=== PATIENT | female | born 1950 | race Caucasian/White ===

== ENCOUNTER 2016-07-06 06:02 | Inpatient (IN) | payer OTHER ==
[2016-06-02 13:47] VITALS: BMI 29.0
--- NOTE | 2016-06-02 14:21 | PAT Medication Instructions ---
Service Date Jun 02, 2016. Current Home Medication List Albuterol Sulfate (Proair Respiclick), 2 PUFF INH Q4 PRN for SOB/Wheezing Calcium/Vitamin D (Os-Berry 500 Plus D), 1 TAB PO 3XWK Estradiol Vaginal (Vagifem), 1 TAB PV 2XWK Krill Oil (Megared [place]-3 Krill Oil 500 mg), 1 CAP PO 3XWK Levothyroxine Sodium (Levothyroxine Sodium), 1 TAB PO QAM Multivitamin (Multivitamin), 1 TAB PO 3XWK Naproxen (Aleve), 220 MG PO Q12 PRN for Pain Umeclidinium-Vilanterol (Anoro Ellipta 62.5-25 Mcg/INH), 2 PUFF INH QAM Medication Instructions For Your Scheduled Surgery - Hold the following medications 2 weeks prior to surgery: Krill Oil (Megared [place]-3 Krill Oil 500 mg), 1 CAP PO 3XWK - Hold the following medications 7-10 days prior to surgery per surgeon instructions: Naproxen (Aleve), 220 MG PO Q12 PRN for Pain - Hold the following medications the morning of surgery: Multivitamin (Multivitamin), 1 TAB PO 3XWK Calcium/Vitamin D (Os-Berry 500 Plus D), 1 TAB PO 3XWK Estradiol Vaginal (Vagifem), 1 TAB PV 2XWK - Take the following medications the morning of surgery with a sip of water: Umeclidinium-Vilanterol (Anoro Ellipta 62.5-25 Mcg/INH), 2 PUFF INH QAM Levothyroxine Sodium (Levothyroxine Sodium), 1 TAB PO QAM Albuterol Sulfate (Proair Respiclick), 2 PUFF INH Q4 PRN for SOB/Wheezing ( bring with you to hospital on day of surgery) Tramadol (can take up to four hours prior to surgery if needed) - Take the following medications as scheduled the night before surgery: Albuterol Sulfate (Proair Respiclick), 2 PUFF INH Q4 PRN for SOB/Wheezing Tramadol If you have any questions please call us at [phone] or [phone] ( Lucía) or [phone]
[2016-06-02 14:58] LABS: BASO % 0.2 %; BASO ABS # 0.02 K/uL (0-0.2); COMPLETE YES; EOS % 0.5 %; HEMATOCRIT 42.2 % (37-47); IG% 0.1 %; LYMPH % 23.3 %; MEAN CELL VOLUME 89.2 fL (80-100); MEAN CORPUSCULAR HGB CONC 33.6 g/dl (32-36); MEAN PLATELET VOLUME 11.5 fL (7.4-10.4); MONO % 5.8 %; NEUT % 70.1 %; PLATELET COUNT 230 K/uL (130-400); RED BLOOD COUNT 4.73 M/uL (4.2-5.4); WHITE BLOOD COUNT 8.17 K/uL (4.8-10.8)
--- NOTE | 2016-06-02 15:05 | DIAGNOSTIC IMAGING REPORT ---
CHEST 2 VIEWS ROUTINE CLINICAL HISTORY: Preoperative chest COMPARISON STUDY: No previous studies for comparison. FINDINGS: The cardiac and mediastinal contours are normal. There is no evidence of focal pulmonary consolidation. There is no evidence of failure. No pleural effusions are visualized.[ IMPRESSION: No active disease in the chest. Electronically signed by: Jayy Ashraf M.D. 06/02/2016 3:03 PM
[2016-06-02 15:07] LABS: PROTHROMBIN TIME (PATIENT) 10.2 SECONDS (9.0-12.0)
[2016-06-02 15:09] LABS: URINE APPEARANCE CLEAR (CLEAR); URINE BILIRUBIN NEG (NEG); URINE COLOR YELLOW; URINE EPITHELIAL CELL AUTO 20-30 /lpf (0-5); URINE NITRITE NEG (NEG); URINE SPECIFIC GRAVITY 1.014 (1.000-1.030); UROBILINOGEN NEG (NEG); ZZUR CULT IF INDIC CLEAN CATCH NO
[2016-06-02 15:10] LABS: MANUAL MICROSCOPIC REQUIRED? NO; REVIEW REQ? NO
[2016-06-02 15:22] LABS: BUN/CREATININE RATIO 11.2 (10-20); CALCIUM 9.6 mg/dl (8.5-10.1); CREATININE 0.97 mg/dl (0.60-1.20); POTASSIUM 4.1 mmol/L (3.5-5.1)
[2016-07-06] VITALS (10 sets, daily range): BP systolic 92–132; BP diastolic 57–75; PULSE 73–86; TEMP 36.3–36.6; O2SAT 94–98; Ht 162.6 cm; Wt 76.9 kg
[~2016-07-06] VITALS: Ht 162.6 cm; Wt 76.9 kg
[~2016-07-06 06:02] MED LIST: ACETAMINOPHEN 500 MG TAB PO SCH; ALBU18002 INH; CALC500C70 PO; CEFAZOLIN 2000 MG/60 ML D5W 60 ML IV SCH; CeleBREX 200 MG CAP PO SCH; DEXAMETHASONE 4 MG TAB PO SCH; ESTR10TA PV; FAMOTIDINE 20 MG TAB PO SCH; GABAPENTIN 300 MG CAP PO SCH; KRIL1CAP18 PO; LACTATED RINGER'S 1000ML 1,000 ML IV SCH; LACTATED RINGER'S 1000ML 500 ML IV ONE; LACTATED RINGER'S 1000ML IV SCH; LEVO75TA5 PO; METOCLOPRAMIDE HCL 10 MG TAB PO SCH; MULT-506 PO; NAPR1TAB9 PO; OXYCODONE HCL 10 MG TABCR (OXYCONTIN) PO SCH; POLYMYXIN B SULFATE 100,000 UNITS in NSS 100ML IR SCH; ROPIVACAINE 5MG/ML 30 ML 150 MG, BUPIVACAINE/EPINEPHR 0.5% MPF 30 ML, KETOROLAC TROMETH... INFIL SCH; UMEC1AER INH; VANCOMYCIN INJ 400 MG in NSS 100ML IR SCH
[2016-07-06] MEDS ORDERED: BUPIVACAINE 0.5 % 5 MG/1 ML PF 10ML VIAL ONE (06:29)
[2016-07-06] MEDS ORDERED: LIDOCAINE HCL 2% 2 ML VIAL (20MG/ML) ONE (06:38)
[2016-07-06] MEDS ORDERED: MIDAZOLAM HCL 1 MG/ML 2ML VIAL ONE ×2 (06:38)
[2016-07-06] MEDS ORDERED: PROPOFOL IV EMULSION 10 MG/ML 20 ML VIAL IV ONE (06:38)
[2016-07-06] MEDS ORDERED: FENTANYL CITRATE INJ 50 MCG/1 ML 2 ML VIAL ONE (06:39)
[2016-07-06] MEDS ORDERED: TRAM-10 PO (06:45)
[2016-07-06] MEDS ORDERED: ORTHO JOINT ANESTHETIC ONE (06:58)
--- NOTE | 2016-07-06 07:11 | History and Physical ---
History & Physical Date Jul 06, 2016. Chief Complaint L HIP PAIN History of Present Illness The patient is a 66 year old female with complaints of GREATER THAN 2 YEARS OF L HIP GROIN PAIN. 6/10 W ACTIVITY LIMITED STANDING AND WALKING TOLERANCE HAS FAILED CONSERVATIVE RX INCLUDING INJECTIONAND PT . PAIN W ALL ADLS LIMITED STANDING AND WALKING DON XRAY CW ADVANCED DJD OF HIP. Additional History Hepatic Disease: No Endocrine Disorder: Yes (THYROID ) Kidney Disease: No Hypertension: No Heart Disease: No Bleeding Tendencies: No Infectious Diseases: No Other: ASTHMA Allergies Coded Allergies: No Known Allergies (Verified , 07/06/16) Home Medications Scheduled Calcium/Vitamin D (Os-Berry 500 Plus D), 1 TAB PO 3XWK Estradiol Vaginal (Vagifem), 1 TAB PV 2XWK Krill Oil (Megared [place]-3 Krill Oil 500 mg), 1 CAP PO 3XWK Levothyroxine Sodium (Levothyroxine Sodium), 1 TAB PO QAM Multivitamin (Multivitamin), 1 TAB PO 3XWK Umeclidinium-Vilanterol (Anoro Ellipta 62.5-25 Mcg/INH), 2 PUFF INH QAM Scheduled PRN Albuterol Sulfate (Proair Respiclick), 2 PUFF INH Q4 PRN for SOB/Wheezing Naproxen (Aleve), 220 MG PO Q12 PRN for Pain Tramadol (Ultram), 50 MG PO Q4H PRN for Pain Physical Examination Skin: warm/dry, no rash Eyes: normal inspection, EOMI, sclerae normal ENT: normal ENT inspection, pharynx normal Head: normocephalic, atraumatic Neck: supple, no adenopathy, trachea midline Respiratory/Chest: lungs clear, normal breath sounds, no respiratory distress Cardiovascular: regular rate, rhythm, no edema, no murmur Abdomen / GI: normal bowel sounds, non tender Back: normal inspection Extremities: normal inspection, normal range of motion, + pertinent finding ( LEG LENGHTS EQUAL GROIN PAIN FLEX 80 INT ROT 0 EXT ROT 10 ALL REPRODUCE PAIN ) Neurologic/Psych: no motor/sensory deficits, alert, normal reflexes, oriented x 3 Diagnosis DJD L HIP ASA Classification: ASA Class II Plan of Treatment L GILBERT
[2016-07-06] MEDS: TRANEXAMIC ACID INJ 1,000 MG in SODIUM CHLORIDE 0.9% 100ML 100 ML IV SCH ×2 (07:26→11:16)
[2016-07-06] MEDS ORDERED: PHENYLEPHRINE 100MCG/ML 5ML SYR ONE (08:02)
[2016-07-06] MEDS ORDERED: EpHEDrine SULFATE INJ 50 MG/ML AMP ONE (08:02)
[2016-07-06] MEDS ORDERED: BACITRACIN 50000 UNIT VIAL IR ONE (08:36)
[2016-07-06] MEDS ORDERED: POVIDONE-IODINE OP SOLN 30 ML BTL TOP ONE (08:36)
--- NOTE | 2016-07-06 09:19 | [facility] Post Operative Brief Note ---
Immediate Operative Summary Operative Date Jul 06, 2016. Pre-Operative Diagnosis Degenerative joint disease left hip. Post-Operative Diagnosis same as preoperative Procedure(s) Performed Left Total Hip Arthroplasty, Direct Anterior Approach Surgeon Dr. Cohen Continuous Improvement Manager Surgeon(s) Dianne Eckert Estimated Blood Loss 50 ml Findings DJD Specimens A. Femoral head Complication(s) None Disposition Recovery Room / PACU
[2016-07-06] MEDS ORDERED: ALBUTEROL HFA INHALER 8.5 GM INH PRN (09:30)
[2016-07-06] MEDS ORDERED: DiphenhydrAMINE HCL 50 MG/ML VIAL IV PRN (09:30)
[2016-07-06] MEDS ORDERED: BISACODYL 10 MG SUPP PR PRN (09:30)
[2016-07-06] MEDS ORDERED: ONDANSETRON INJ 2 MG/ML 2 ML VIAL IV PRN (09:30)
[2016-07-06] MEDS ORDERED: ZOLPIDEM TARTRATE 5 MG TAB PO PRN (09:30)
[2016-07-06] MEDS ORDERED: TRAMADOL HCL 50 MG TAB PO PRN (09:30)
[2016-07-06] MEDS ORDERED: ALUMINUM/MAGNESIUM/SIMETH (MAALOX MAX) 30 ML UDC PO PRN (09:30)
[2016-07-06] MEDS ORDERED: METOCLOPRAMIDE HCL INJ 5 MG/ML 2 ML VIAL IV PRN (09:30)
[2016-07-06] MEDS ORDERED: SOD PHOSPHATE/SOD BIPHOSPHATE ENEMA 132 ML BTL PR PRN (09:30)
[2016-07-06] MEDS ORDERED: MoRPHine SULFATE 2 MG/ML CARP IV PRN (09:30)
[2016-07-06] MEDS ORDERED: MAGNESIUM HYDROXIDE SUSP 30 ML UDC PO PRN (09:30)
--- NOTE | 2016-07-06 10:25 | Anesthesiology Progress Note ---
Anesthesia Post Op Note Date & Time Jul 06, 2016 at 10:25 Vital Signs Pain Intensity: 0 Vital Signs Past 12 Hours Date Time Temp Pulse Resp B/P Pulse Ox O2 Delivery O2 Flow Rate FiO2 07/06/16 10:15 82 13 113/69 94 Nasal Cannula 2 07/06/16 10:05 87 20 123/61 97 Nasal Cannula 2 07/06/16 09:55 69 12 112/58 97 Nasal Cannula 2 07/06/16 09:46 36.6 58 12 183/87 96 Nasal Cannula 2 07/06/16 06:47 36.5 77 20 132/74 96 Room Air Notes Mental Status: alert / awake / arousable, participated in evaluation Pt Amnestic to Procedure: Yes Nausea / Vomiting: adequately controlled Pain: adequately controlled Airway Patency, RR, SpO2: stable & adequate BP & HR: stable & adequate Hydration State: stable & adequate Neuraxial Anesthesia: was administered, sensory block is resolving Anesthetic Complications: no major complications apparent
--- NOTE | 2016-07-06 10:31 | DIAGNOSTIC IMAGING REPORT ---
AP PELVIS AND LEFT HIP 2 VIEWS CLINICAL HISTORY: Degenerative arthritis. Postsurgical study. COMPARISON STUDY: No previous studies for comparison. FINDINGS: There are postsurgical changes of a total left hip arthroplasty. The acetabular and femoral components appear well seated. There is no dislocation. There are no acute fractures. There is an overlying surgical drain. IMPRESSION: Postsurgical changes of a total left hip arthroplasty. Electronically signed by: Jayy Ashraf M.D. 07/06/2016 10:29 AM Dictated Date/Time: 07/06/2016 10:28 AM
--- NOTE | 2016-07-06 12:33 | DIAGNOSTIC IMAGING REPORT ---
INTRAOPERATIVE LEFT HIP SINGLE VIEW CLINICAL HISTORY: Left hip arthroplasty COMPARISON STUDY: No previous studies for comparison. FINDINGS: 11 seconds of fluoroscopic time was utilized. A single AP intraoperative fluoroscopic spot image demonstrates a total left hip arthroplasty. The prosthetic head and acetabular component are not fully included on the spot image. IMPRESSION: Intraoperative radiograph demonstrating a total left hip arthroplasty. Electronically signed by: Jayy Ashraf M.D. 07/06/2016 12:31 PM Dictated Date/Time: 07/06/2016 12:30 PM
[2016-07-06] MEDS: D5W AND 1/2NSS + 20MEQ KCL 1,000 ML IV SCH ×2 (12:59→21:33)
[2016-07-06] MEDS: KETOROLAC TROMETHAMINE 30 MG/ML VIAL IV. SCH ×2 (12:59→18:00)
[2016-07-06] MEDS: ACETAMINOPHEN 500 MG TAB PO SCH ×2 (13:43→21:34)
[2016-07-06] MEDS ORDERED: TRANEXAMIC ACID INJ 1,000 MG in SODIUM CHLORIDE 0.9% 100ML 100 ML IV ONE (16:00)
[2016-07-06] MEDS: CEFAZOLIN IV 2,000 MG in DEXTROSE 5% 50ML 50 ML IV SCH (16:21)
--- NOTE | 2016-07-06 17:57 | OPERATIVE REPORT ---
DATE OF OPERATION: 07/06/2016 PREOPERATIVE DIAGNOSIS: Degenerative arthritis, left hip. POSTOPERATIVE DIAGNOSIS: Same. PROCEDURE: Left total hip replacement. SURGEON: Dr. Cohen. SENIOR PRINCIPAL SOFTWARE ENGINEER: SUJATA Stiles ANESTHESIA: Spinal. BLOOD LOSS: 75 mL. REPLACEMENT FLUIDS: 1800 mL of crystalloid. DRAINS: Hemovacs x1. CULTURES: None. COMPLICATIONS: None. COMPONENTS USED: [employer] hip system: Acetabulum size 48, femur size 5 standard offset, femoral head 0, neck length 32 mm. NOTE: SUJATA Stiles was present and assisted throughout due to the complicated nature of this case. She helped with preparation and set up. She first assisted throughout and personally closed the muscle fascia, subcutaneous and skin layers and applied the postop dressing. DESCRIPTION: Following satisfactory spinal, the patient was supine. The left leg was placed in the tractioning device and the right leg in the well leg wang. Leg was prepared with ChloraPrep and draped sterilely. Following a surgical time-out, an anterior approach was performed in the interval between the sartorius and tensor muscles, the circumflex femoral vessels were identified and ligated. An anterior capsulotomy was performed exposing the arthritic femoral neck and head. The femoral neck and head were trimmed and removed. The acetabular self-retraining retractor was placed. Acetabular reaming was completed and the 48 shell was impacted under fluoroscopic guidance and secured with a dome screw. Local anesthetic was placed and after irrigation, the poly liner was placed. Attention was turned to the femur. The femur was placed into a position of external rotation, extension and adduction. The femoral canal was prepared up to a size 5. A trial reduction with a 0 neck length head showed good soft tissue tension, jain of leg lengths using fluoroscopic landmarks and good fit and fill of the proximal canal with fluoroscopy. The hip was dislocated. The trial component was removed. Local anesthetic was placed and after irrigation, the final implant was placed and the hip was reduced. Fluoroscopy confirmed the position. A Betadine soak was performed. After 5 minutes, the Betadine was irrigated. The capsule was closed with 1-0 Vicryl interrupted. The muscle fascia with a running suture of 1 Vicryl. The subcutaneous tissues with 2-0 Vicryl. The skin with a running subcuticular stitch of 3-0 V-Loc. Dermabond and a dry dressing were applied. The patient was returned to her bed in stable condition. I attest to the content of the Intraoperative Record and any orders documented therein. Any exceptio ns are noted below.
[2016-07-06] MEDS ORDERED: SENNA 8.6 MG TAB PO SCH (21:00)
[2016-07-06] MEDS: ASPIRIN 81 MG ECTAB PO SCH (21:05)
[2016-07-07] MEDS: CEFAZOLIN IV 2,000 MG in DEXTROSE 5% 50ML 50 ML IV SCH (00:08)
[2016-07-07] MEDS: KETOROLAC TROMETHAMINE 30 MG/ML VIAL IV. SCH ×3 (00:08→11:30)
[2016-07-07] MEDS: OXYCODONE HCL IR 5 MG TAB (IMMEDIATE RELEASE) PO PRN ×2 (01:09→11:00)
[2016-07-07 04:00] VITALS: BP 104/66; PULSE 58; TEMP 36.3; O2SAT 96
[2016-07-07 05:59] LABS: BASO % 0.1 %; BASO ABS # 0.01 K/uL (0-0.2); COMPLETE YES; HEMATOCRIT 33.9 % (37-47); IG% 0.2 %; LYMPH % 5.9 %; LYMPH ABS # 0.84 K/uL (1.2-3.4); MEAN CELL VOLUME 88.1 fL (80-100); MEAN CORPUSCULAR HEMOGLOBIN 30.1 pg (25-34); MEAN CORPUSCULAR HGB CONC 34.2 g/dl (32-36); MEAN PLATELET VOLUME 11.5 fL (7.4-10.4); MONO % 6.6 %; NEUT % 87.2 %; PLATELET COUNT 186 K/uL (130-400); RED BLOOD COUNT 3.85 M/uL (4.2-5.4); WHITE BLOOD COUNT 14.15 K/uL (4.8-10.8)
[2016-07-07] MEDS ORDERED: LEVOTHYROXINE 75 MCG TAB PO SCH (06:00)
[2016-07-07] MEDS: ACETAMINOPHEN 500 MG TAB PO SCH (06:08)
[2016-07-07 06:34] LABS: BUN/CREATININE RATIO 15.7 (10-20); CALCIUM 8.6 mg/dl (8.5-10.1); CREATININE 0.72 mg/dl (0.60-1.20)
[2016-07-07] MEDS: D5W AND 1/2NSS + 20MEQ KCL 1,000 ML IV SCH (08:00)
[2016-07-07] MEDS: ASPIRIN 81 MG ECTAB PO SCH (08:05)
--- NOTE | 2016-07-07 08:13 | Anesthesiology Progress Note ---
Anesthesia Post Op Note Date & Time Jul 07, 2016 at 08:12 Vital Signs Vital Signs Past 12 Hours Date Time Temp Pulse Resp B/P Pulse Ox O2 Delivery O2 Flow Rate FiO2 07/07/16 07:25 Room Air 07/07/16 04:00 36.3 58 18 104/66 96 Room Air 07/06/16 23:50 Room Air 07/06/16 23:10 36.5 73 16 98/62 95 Room Air Notes Mental Status: alert / awake / arousable, participated in evaluation Pt Amnestic to Procedure: Yes Nausea / Vomiting: adequately controlled Pain: adequately controlled Airway Patency, RR, SpO2: stable & adequate BP & HR: stable & adequate Hydration State: stable & adequate Neuraxial Anesthesia: was administered, sensory block resolved Anesthetic Complications: no major complications apparent
--- NOTE | 2016-07-07 08:32 | DISCHARGE SUMMARY ---
DISCHARGE DIAGNOSIS: Degenerative joint disease, left hip. SECONDARY DIAGNOSIS: None. CONSULTS: None. COMPLICATIONS: None. PROCEDURE: The patient underwent a direct anterior left total hip arthroplasty with Dr. Cohen on 07/06/2016. BRIEF HISTORY: Please see previously dictated history and physical. HOSPITAL SUMMARY: The patient was admitted on the above day for the above procedure. Procedure went without complication. Postop day 1, the patient was feeling well without complaints. She denied chest pain or shortness of breath. Vital signs were stable. She was afebrile. Dressing was clean, dry and intact. She was neurovascularly intact. Calves were soft and nontender. Hemovac drained 145 and 25 mL per shift. Hemoglobin was 11.6. The patient began physical therapy per protocol. She was discharged to home later that day in stable condition. For further review, please see the chart. Lab, x-ray data and discharge instructions as per chart.
[2016-07-07 08:54] VITALS: BP 114/69; PULSE 78; TEMP 36.5; O2SAT 96
[2016-07-07] MEDS ORDERED: MULTIVITAMIN TAB PO SCH (09:00)
[2016-07-07] MEDS ORDERED: PANTOprazole SOD 40 MG TAB PO SCH (09:00)
[2016-07-07] MEDS ORDERED: UMECLIDINIUM VILANTEROL INH SCH (09:00)
--- NOTE | 2016-07-07 11:58 | Discharge Instructions ---
Discharge Instructions Admission Reason for Admission: Left Hip Degenerative Arthritis Discharge Discharge Diagnosis / Problem: sp left GILBERT Discharge Goals Goal(s): Decrease discomfort, Improve function, Increase independence Activity Recommendations Activity Limitations: per Instructions/Follow-up section . Instructions / Follow-Up Instructions / Follow-Up ACTIVITY RECOMMENDATIONS: SELF CARE INSTRUCTIONS AFTER TOTAL HIP REPLACEMENT : Direct Anterior Approach Until the incision and soft tissues around your hip have healed, there is a possibility that the hip prosthesis could dislocate. A. Hip flexion ( Up & Down out of chair or steps ) may be difficult. This is normal. B. Numbness in front of the thigh is also normal for a few weeks. C. Use hand rails when walking on stairs. D. Wear low heeled shoes with non-slip soles. E. Be sure that your floors are free of things that could trip you - throw rugs , electrical cords, small objects. Avoid wet and waxed floors, especially with crutches and canes. F. Try to walk several times a day with rest periods between. G. Continue with all the exercises taught to you in the hospital. Again, make walking a part of your daily routine. SPECIAL CARE INSTRUCTIONS: VERY IMPORTANT TO READ AND REVIEW A. You may still be at risk for phlebitis and blood clots. 1. Wear surgical stockings (ROYCE hose) for 2 weeks after surgery to improve circulation and reduce swelling. 2. Take Aspirin 81mg twice daily for 4 weeks or as directed by your doctor. This is your blood thinner. 3. High risk patients may be prescribed a stronger blood thinner if necessary. 4. If you are on Coumadin normally, your family doctor/sprayer automatic spray machine should monitor your blood work. Expect a phone call the day of or the day after bloodwork is drawn to adjust your dosage. B. You must take antibiotics before having dental work, bladder, bowel and other surgery. Your doctor will provide you with a permanent card to carry describing precautions. C. Call [facility] if you have a fever, redness or swelling around the incision, cloudy drainage from incision, or sudden increase in pain in your hip, not relieved by your regular pain medication. D. Please call the office at if you have any concerns or questions about your operation or recovery. * YOU MAY SHOWER, NO TUB BATHS UNTIL CLEARED BY YOUR DOCTOR. - Keep an extra close eye on the top portion of your incision. Be sure to keep clean & dry. * WEAR ROYCE HOSE 20 HOURS PER DAY FOR 2 WEEKS. * YOU MAY PROGRESS FROM A WALKER, TO A CANE, TO INDEPENDENT AT YOUR OWN PACE. * MOST PATIENTS WILL HAVE HOME NURSING FOR THERAPY. IF YOU DECIDE TO DO OUTPATIENT PHYSICAL THERAPY, PLEASE SCHEDULE THIS 3 TIMES PER WEEK. * DERMABOND Prineo- This is a mesh tape dressing that is covered with glue. It should remain in place until the incision is properly healed, usually 10-14 days. This dressing is designed to naturally slough off. You may trim the excess mesh tape as it peels off. Incision may be briefly wet in a shower. Dry immediately by blotting with a clean, dry towel. Do not bath or swim until instructed by your doctor. Do not scratch, rub, or pick at the dressing. Do not apply any topical ointments or lotions until dressing is completely removed and/or instructed by your doctor. There may be a small piece of suture material at one end of your incision. Do not pull or trim this. If it is bothersome or catching on clothing, you may cover it with a band-aid. FOLLOW UP VISIT: If appointment is not already scheduled: Please call [facility] to make a follow-up appointment for 2 weeks after your surgery at . Current Hospital Diet Patient's current hospital diet: Regular Diet Discharge Diet Recommended Diet: Regular Diet Procedures Procedures Performed: Left Total Hip Arthroplasty, Direct Anterior Approach Pending Studies Studies pending at discharge: no Medical Emergencies . Who to Call and When: Medical Emergencies: If at any time you feel your situation is an emergency, please call 911 immediately. . Non-Emergent Contact Non-Emergency issues call your: Primary Care Provider . "Provider Documentation" section prepared by Dianne Galeana. VTE Core Measure Inpt VTE Proph given/why not?: Other Anticoagulation, T.E.D. Stockings, SCD's
[2016-07-07] MEDS ORDERED: ASPEC81 PO (12:00)
[2016-07-07] MEDS ORDERED: RXC5 PO (12:00)
[2016-07-07] MEDS ORDERED: ONDA8TAB6 PO (12:00)
[2016-07-07] MEDS ORDERED: ACET-1138 PO (12:00)
[2016-07-07] MEDS ORDERED: CLB200 PO (12:00)
[2016-07-07] MEDS ORDERED: SNK PO (12:00)
[2016-07-07 12:32] VITALS: BP 114/69; PULSE 78; TEMP 36.5; O2SAT 96
[2016-07-08] MEDS ORDERED: CeleBREX 200 MG CAP PO SCH (21:00)
== END 2016-07-07 13:55 | disposition home health service (06) | DRG 470 ==
LOC: ENRESERVDT → ENRESERVTM → C.ACU 06:02 → C.3E 06:30
PROVIDERS: ADMIT Orthopaedic Surgery; ATTEND Orthopaedic Surgery
PROC: 0SRB04Z Replacement of Left Hip Joint with Ceramic on Polyethylene Synthetic Substitute, Open Approach (ICD-10-PCS; principal; 2016-07-06 07:45)
DX: M16.12 Unilateral primary osteoarthritis, left hip (principal); J45.909 Unspecified asthma, uncomplicated; J44.9 Chronic obstructive pulmonary disease, unspecified; E03.9 Hypothyroidism, unspecified; Z79.51 Long term (current) use of inhaled steroids; Z79.890 Hormone replacement therapy; Z79.891 Long term (current) use of opiate analgesic; Z79.899 Other long term (current) drug therapy